=== PATIENT | male | born 1990 | race Caucasian/White ===

== ENCOUNTER 2023-01-13 20:23 | Observation (INO) | payer BC, SELFPAY ==
[2023-01-13] VITALS (9 sets, daily range): BP systolic 92–125; BP diastolic 58–78; PULSE 68–88; RESP 11–19; TEMP 36.8–36.9; O2SAT 96–99; BMI 27.9
--- NOTE | ~2023-01-13 | XR_ITS ---
EXAMINATION: XR soft tissue neck DATE: 01/13/2023 22:34 INDICATION: Retained food bolus. Cough. TECHNIQUE: 2 views of the neck soft tissues were obtained. COMPARISON: None. FINDINGS: The adenoids are enlarged. The palatine tonsils, epiglottis, prevertebral soft tissues, and glottis are normal. No radiopaque foreign body. IMPRESSION: 1. Enlarged adenoids. Reviewed, dictated and finalized at location A. IMPRESSION: 1. Enlarged adenoids.
--- NOTE | ~2023-01-13 | XR_ITS ---
EXAMINATION: XR chest 1V portable DATE: 01/14/2023 05:57 INDICATION: Cough. TECHNIQUE: A single frontal view of the chest was obtained. COMPARISON: None. FINDINGS: There is no pneumonia, pleural effusion, or pneumothorax. The heart size is normal. IMPRESSION: 1. No acute cardiopulmonary disease. Reviewed, dictated and finalized at location A.
[2023-01-13] MEDS: NITROGLYCERIN SL 0.4 MG TABLET SUBLINGUAL (20:57)
[2023-01-13] MEDS: GLUCAGON FOR INJ 1 MG VIAL IV PUSH (21:01)
--- NOTE | 2023-01-13 21:12 | ED.GENADULT ---
HPI - General Adult General Chief complaint: Unspecified Stated complaint: food stuck in throat Time Seen by Provider: 01/13/23 20:33 History of Present Illness HPI narrative: Patient is a 32-year-old gentleman who presents the emergency department with chief complaint of esophageal food impaction patient reports he was eating [employer] ate a piece of chicken and reports that it feels as though the chicken is stuck in his esophagus patient reports that his saliva builds up and then he has to spit the saliva out as that starts to get into his airway patient reports he tried [employer] and other things to try to get the impaction to move without success. Patient reports that he has had issues before with food becoming lodged but usually will clear on its own and has never had to come to the emergency department. Related Data Allergies Allergy/AdvReac Type Severity Reaction Status Date / Time No Known Allergies Allergy Verified 01/13/23 20:31 Review of Systems Review of Systems: A 10 system review of systems was completed on the patient and is negative except for what is stated in the HPI. Nursing and ancillary documentation was reviewed. Exam Narrative: GENERAL: Well-appearing, well-nourished, and in no acute distress. HEAD: Normocephalic, atraumatic. EYES: PERRLA and EOMI. ENT: Nares clear, no rhinorrhea or epistaxis. Mucous membranes moist. NECK: Supple. CHEST: Clear to auscultation. No respiratory distress. HEART: Regular rate and rhythm. No murmur heard. Normal peripheral pulses. ABDOMEN: Soft, nontender, nondistended, normal active bowel sounds. EXTREMITIES: Normal range of motion. No edema. SKIN: Warm, dry, no rash. NEURO: No focal deficits. Alert and oriented x3. PSYCH: Normal mood and affect. Course Vital Signs Vital signs: Vital Signs Temperature 36.8 C 01/13/23 20:27 Pulse Rate 87 01/13/23 20:27 Respiratory Rate 01/13/23 20:27 Blood Pressure 125/77 01/13/23 20:27 Pulse Oximetry 99 01/13/23 20:27 Oxygen Delivery Room Air 01/13/23 20:27 Temperature 36.8 C 01/13/23 20:27 Pulse Rate 88 01/13/23 20:55 Respiratory Rate 01/13/23 20:27 Blood Pressure 125/77 01/13/23 20:27 Pulse Oximetry 99 01/13/23 20:27 Oxygen Delivery Room Air 01/13/23 20:27 Medical Decision Making MDM Narrative Medical decision making narrative: Differential diagnosis esophageal food impaction Patient was given a dose of glucagon and given sublingual nitro in the emergency department the patient states he feels though the impaction may have moved a little bit but reports that he still having to spit out his saliva. Vital Signs Vital Signs: Vital Signs Temperature 36.8 C 01/13/23 20:27 Pulse Rate 87 01/13/23 20:27 Respiratory Rate 01/13/23 20:27 Blood Pressure 125/77 01/13/23 20:27 Pulse Oximetry 99 01/13/23 20:27 Oxygen Delivery Room Air 01/13/23 20:27 Temperature 36.8 C 01/13/23 20:27 Pulse Rate 88 01/13/23 20:55 Respiratory Rate 01/13/23 20:27 Blood Pressure 125/77 01/13/23 20:27 Pulse Oximetry 99 01/13/23 20:27 Oxygen Delivery Room Air 01/13/23 20:27 Discharge Plan Discharge Follow-up/Referrals: PHYSICIAN,HOST/HOSTESS RESTAURANT [Primary Care Provider] -
--- NOTE | 2023-01-13 21:42 | PC.NURSE ---
pt states that he still feels the piece of chicken in his throat. pt in no distress. denies any sob. able to speak in full sentences.
[2023-01-13 22:44] LABS: Basophils Absolute Auto 0.1 K/mm3 (0.0-0.1); Basophils Percent Auto 0.6 % (0.2-1.2); Eosinophils Absolute Auto 0.3 K/mm3 (0-0.3); Eosinophils Percent Auto 1.9 % (0-4.4); Hematocrit 46.1 % (42.0-52.0); Hemoglobin 15.5 g/dL (14.0-18.0); Immature Granulocyte Absolute 0.06 K/mm3 (0.00-0.031); Immature Granulocyte Percent A 0.4 % (0-0.5); Lymphocytes Absolute Auto 1.62 K/mm3 (0.9-3.2); Lymphocytes Percent Auto 10.5 % (18.3-44.2); Mean Corpuscular HGB Conc 33.6 g/dl (32-36); Mean Corpuscular Hemoglobin 30.2 pg (26-34); Mean Corpuscular Volume 89.9 fl (80-100); Mean Platelet Volume 10.1 fl (7.4-10.4); Monocytes Absolute Auto 0.9 K/mm3 (0.1-0.6); Monocytes Percent Auto 5.7 % (2.6-8.5); Neutrophils Absolute Auto 12.4 K/mm3 (1.3-6.7); Neutrophils Percent Auto 80.9 % (45.5-73.1); Platelet Count Result 242 k/mm3 (150-375); Red Blood Count 5.13 M/mm3 (4.6-6.20); Red Cell Distribution Width 12.3 % (11.5-14.5); White Blood Count 15.4 K/mm3 (4.5-10.0)
[2023-01-13 22:57] LABS: Alanine Aminotransferase 41 U/L (6-50); Albumin Level 4.1 g/dL (3.5-5.1); Alkaline Phosphatase 57 U/L (38-126); Anion Gap 4 mmol/L (8-16); Aspartate Amino Transferase 28 U/L (17-59); Bilirubin,Total 0.5 mg/dL (0.2-1.3); Blood Urea Nitrogen 13 mg/dL (9-20); Calcium 8.5 mg/dL (8.4-10.2); Carbon Dioxide 26 mmol/L (22-30); Chloride 108 mmol/L (98-107); Estimated CRCL calculation 92 ml/min; Estimated Glomerular Filt Rate > 60; Glucose 137 mg/dL (65-110); Potassium 3.8 mmol/L (3.4-5.0); Sodium 138 mmol/L (137-145)
--- NOTE | 2023-01-13 23:45 | ADMGEN ---
This patient, Damon Monsalve, was admitted to Medical Room 347-. Patient/family oriented to hospital policies and general routines including ID bracelet, bed and alarms, visiting hours, pain management, procedures, bathroom and other care routines, personal items, smoking policy, room service/diet, and visiting hours. Information on how to activate the Rapid Response Team has been discussed. Patient/Family are encouraged to report perceived risks to care and to ask questions if they do not understand what they are told or what they should do.
[2023-01-14] VITALS (8 sets, daily range): BP systolic 95–119; BP diastolic 54–72; PULSE 60–109; RESP 15–26; TEMP 36.7–36.9; O2SAT 96–100
[2023-01-14] MEDS: SODIUM CHLORIDE 0.9% IV 1,000 ML 125 ML IV CONT (00:06)
--- NOTE | 2023-01-14 01:53 | PM.IMHP ---
H&P: HPI History of Present Illness Date/Time: 01/13/23 23:15 Chief Complaint: Food stuck in my throat Narrative: 32-year-old male with a past medical history of asthma and vaping who presented to the ER with food stuck in his throat. Patient stated he was eating chicken from [employer] fried chicken and that the food got stuck. He reports that he has been having intermittent episodes of feeling as if food is gotten partially stuck in the past but he is usually able to get the food to pass when he drinks some soda. However today the food did not pass despite him trying to eat a banana and drinking some carbonated beverages. He reports that he cannot even manage his secretions. At the time of my evaluation the patient is repeatedly coughing and spitting up his secretions and has about 200 mL an emesis bag. He reports that he has been having intermittent sensation of heartburn for several months. He has never had a EGD. He denies any hematemesis or coffee-ground emesis. He denies any changes in his bowels. He does report that he has been coughing for the last week or so. He denies any rhinorrhea fever or chest pain. He denies any recent ill contacts. In the ER they gave the patient dose of glucagon and nitroglycerin without relief in his symptoms. A neck x-ray confirmed was no radiopaque bodies causing the patient's obstruction such as chicken bones. He does have a history of asthma. He uses his rescue inhaler at least once a day on average. He has not been to see a primary care physician for several years. Review of Systems Review of Systems: 12 systems were reviewed with pertinent positives and negatives per HPI. Except as documented in the HPI, all other systems were reviewed and are negative. [facility] Past Medical History Medical History (Updated 01/14/23 @ 02:07 by Gabriela Mcelroy DO) Asthma Nicotine dependence Vaping Surgical History Surgical History (Updated 01/14/23 @ 01:58 by Gabriela Mcelroy DO) No significant past surgical history Family History Family History Father Healthy adult Mother Healthy adult Social History Social History (Updated 01/14/23 @ 02:01 by Gabriela Mcelroy DO) Social History: The patient is single. He has 2 children. 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 He has intermittently vape since he was a teenager. He quit vaping in May 2022. He rarely drinks alcohol. He rarely uses marijuana. Code status: Full code Surrogate decision maker: Mehrdad Monsalve (father) Smoking status: Former smoker Tobacco type: e-cigarettes/vaping Alcohol intake: current Drinks per week: 3 Substance use: never Substance use type: does not use Lack of Transportation: No Lack of Food: Never True Current Housing: I Have Housing Concerned About Future Housing: No Difficulty Paying Gas/Electric Bills: No Difficulty Paying for Meds: No Currently Unemployed: No Education: Decline to Answer Difficulty w/ Childcare or Family Care: No Spiritual care concerns: No Meds Home Medications and Allergies Home Medications Medication Instructions Recorded Confirmed Type acetaminophen 325 mg tablet 650 mg PO PRN PRN Pain (Scale 01/14/23 01/14/23 History (Tylenol) Score 1-3) albuterol sulfate 90 mcg/actuation 2 puff inhalation QID PRN 01/14/23 01/14/23 History aerosol inhaler Shortness Of Breath Allergies Allergy/AdvReac Type Severity Reaction Status Date / Time No Known Allergies Allergy Verified 01/13/23 20:31 Vital Signs Vital Signs - 24 hr 01/13/23 20:27 01/13/23 20:55 01/13/23 21:01 Temperature 98.2 F Pulse Rate 87 88 85 Respiratory Rate 19 18 Blood Pressure 125/77 92/75 L Pulse Oximetry 99 Oxygen Delivery Room Air 01/13/23 21:31 01/13/23 22:01 01/13/23 22:16 Temperature Pulse Rate 68 78 81 Respiratory Rate 18 16 15 Blood Pressure 105/70 114/77 107/75 P
--- NOTE | 2023-01-14 06:45 | WPDANESEPP ---
Anes - Eval Pre Procedure Procedure: EGD-removal food bolus Date/Time: 01/14/23 06:45 Pre Op Diagnosis: Esophageal Food Impaction Patient Data Age: 32 Gender: M Height: 1.73 m Weight: 83.3 kg Last Vital Signs Temp 36.7 C 01/14/23 04:35 Pulse 109 H 01/14/23 04:35 Resp 20 01/14/23 04:35 BP 110/72 01/14/23 04:35 Pulse Ox 98 01/14/23 04:35 O2 Del Method Room Air 01/13/23 23:45 Allergies Allergy/AdvReac Type Severity Reaction Status Date / Time No Known Allergies Allergy Verified 01/13/23 20:31 Home Medications Medication Instructions Recorded Confirmed Type acetaminophen 325 mg tablet 650 mg PO PRN PRN Pain (Scale 01/14/23 01/14/23 History (Tylenol) Score 1-3) albuterol sulfate 90 mcg/actuation 2 puff inhalation QID PRN 01/14/23 01/14/23 History aerosol inhaler Shortness Of Breath Laboratory Tests 01/13/23 22:24 WBC 15.4 H K/mm3 (4.5-10.0) RBC 5.13 M/mm3 (4.6-6.20) Hgb 15.5 g/dL (14.0-18.0) Hct 46.1 % (42.0-52.0) MCV 89.9 fl (80-100) MCH 30.2 pg (26-34) MCHC 33.6 g/dl (32-36) RDW 12.3 % (11.5-14.5) Plt Count 242 k/mm3 (150-375) MPV 10.1 fl (7.4-10.4) Immature Gran % (Auto) 0.4 % (0-0.5) Neut % (Auto) 80.9 H % (45.5-73.1) Lymph % (Auto) 10.5 L % (18.3-44.2) [place] % (Auto) 5.7 % (2.6-8.5) Eos % (Auto) 1.9 % (0-4.4) Baso % (Auto) 0.6 % (0.2-1.2) Lymph # (Auto) 1.62 K/mm3 (0.9-3.2) [place] # (Auto) 0.9 H K/mm3 (0.1-0.6) Eos # (Auto) 0.3 K/mm3 (0-0.3) Baso # (Auto) 0.1 K/mm3 (0.0-0.1) Abs Immat Gran (auto) 0.06 H K/mm3 (0.00-0.031) Absolute Neuts (auto) 12.4 H K/mm3 (1.3-6.7) Absolute Nucleated RBC 0.0 K/mm3 (0.0-0.012) Nucleated RBC % 0.0 % (0.0-0.2) Sodium 138 mmol/L (137-145) Potassium 3.8 mmol/L (3.4-5.0) Chloride 108 H mmol/L (98-107) Carbon Dioxide 26 mmol/L (22-30) Anion Gap 4 L mmol/L (8-16) BUN 13 mg/dL (9-20) Creatinine 1.00 mg/dL (0.7-1.3) Estim Creat Clear Calc 92 ml/min Estimated GFR > 60 (59 - ) Glucose 137 H mg/dL (65-110) Calcium 8.5 mg/dL (8.4-10.2) Total Bilirubin 0.5 mg/dL (0.2-1.3) AST 28 U/L (17-59) ALT 41 U/L (6-50) Alkaline Phosphatase 57 U/L (38-126) Total Protein 7.0 g/dL (6.3-8.2) Albumin 4.1 g/dL (3.5-5.1) Patient hx anesthesia problems: none Family hx anesthesia problems: none Results Review: All pre-operative results and documents have been reviewed as part of the pre-operative evaluation. [facility] Past Medical History Medical History Asthma Nicotine dependence Vaping Surgical History Surgical History No significant past surgical history Family History Family History Father Healthy adult Mother Healthy adult Social History Social History Social History: The patient is single. He has 2 children. 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 He has intermittently vape since he was a teenager. He quit vaping in May 2022. He rarely drinks alcohol. He rarely uses marijuana. Code status: Full code Surrogate decision maker: Mehrdad Monsalve (father) Smoking status: Former smoker Tobacco type: e-cigarettes/vaping Alcohol intake: current Drinks per week: 3 Substance use: never Substance use type: does not use Lack of Transportation: No Lack of Food: Never True Current Housing: I Have Housing Concerned About Future Housing: No Difficulty Paying Gas/Electric Bills: No Difficulty Paying for Meds: No Currently Unemployed: No Education: Decline to Answer Difficulty w/ Childcare or Family Care: No Spiritual care concerns: No Exa
--- NOTE | 2023-01-14 07:13 | PC.NURSE ---
PATIENT TO GI LAB VIA WHEELCHAIR.
--- NOTE | 2023-01-14 07:20 | WPDANESEPPF ---
Anes - Initial Pre Proc Eval Procedure: Operation Date: 01/14/23 07:30 Proposed Procedures p Esophagogastroduodenoscopy - Mehrdad Tyler MD Date/Time: 01/14/23 07:20 Surgeon: Gabriela Mcelroy DO Pre Op Diagnosis: Esophageal Food Impaction Patient Data Age: 32 Gender: M Height: 1.73 m Weight: 83.3 kg Last Vital Signs Temp 36.7 C 01/14/23 04:35 Pulse 109 H 01/14/23 04:35 Resp 20 01/14/23 04:35 BP 110/72 01/14/23 04:35 Pulse Ox 98 01/14/23 04:35 O2 Del Method Room Air 01/13/23 23:45 Allergies Allergy/AdvReac Type Severity Reaction Status Date / Time No Known Allergies Allergy Verified 01/14/23 07:20 Home Medications Medication Instructions Recorded Confirmed Type acetaminophen 325 mg tablet 650 mg PO PRN PRN Pain (Scale 01/14/23 01/14/23 History (Tylenol) Score 1-3) albuterol sulfate 90 mcg/actuation 2 puff inhalation QID PRN 01/14/23 01/14/23 History aerosol inhaler Shortness Of Breath Laboratory Tests 01/13/23 22:24 WBC 15.4 H K/mm3 (4.5-10.0) RBC 5.13 M/mm3 (4.6-6.20) Hgb 15.5 g/dL (14.0-18.0) Hct 46.1 % (42.0-52.0) MCV 89.9 fl (80-100) MCH 30.2 pg (26-34) MCHC 33.6 g/dl (32-36) RDW 12.3 % (11.5-14.5) Plt Count 242 k/mm3 (150-375) MPV 10.1 fl (7.4-10.4) Immature Gran % (Auto) 0.4 % (0-0.5) Neut % (Auto) 80.9 H % (45.5-73.1) Lymph % (Auto) 10.5 L % (18.3-44.2) [place] % (Auto) 5.7 % (2.6-8.5) Eos % (Auto) 1.9 % (0-4.4) Baso % (Auto) 0.6 % (0.2-1.2) Lymph # (Auto) 1.62 K/mm3 (0.9-3.2) [place] # (Auto) 0.9 H K/mm3 (0.1-0.6) Eos # (Auto) 0.3 K/mm3 (0-0.3) Baso # (Auto) 0.1 K/mm3 (0.0-0.1) Abs Immat Gran (auto) 0.06 H K/mm3 (0.00-0.031) Absolute Neuts (auto) 12.4 H K/mm3 (1.3-6.7) Absolute Nucleated RBC 0.0 K/mm3 (0.0-0.012) Nucleated RBC % 0.0 % (0.0-0.2) Sodium 138 mmol/L (137-145) Potassium 3.8 mmol/L (3.4-5.0) Chloride 108 H mmol/L (98-107) Carbon Dioxide 26 mmol/L (22-30) Anion Gap 4 L mmol/L (8-16) BUN 13 mg/dL (9-20) Creatinine 1.00 mg/dL (0.7-1.3) Estim Creat Clear Calc 92 ml/min Estimated GFR > 60 (59 - ) Glucose 137 H mg/dL (65-110) Calcium 8.5 mg/dL (8.4-10.2) Total Bilirubin 0.5 mg/dL (0.2-1.3) AST 28 U/L (17-59) ALT 41 U/L (6-50) Alkaline Phosphatase 57 U/L (38-126) Total Protein 7.0 g/dL (6.3-8.2) Albumin 4.1 g/dL (3.5-5.1) Patient hx anesthesia problems: none Family hx anesthesia problems: none Results Review: All pre-operative results and documents have been reviewed as part of the pre-operative evaluation. [facility] Past Medical History Medical History Asthma Nicotine dependence Vaping Surgical History Surgical History No significant past surgical history Family History Family History Father Healthy adult Mother Healthy adult Social History Social History Social History: The patient is single. He has 2 children. 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 He has intermittently vape since he was a teenager. He quit vaping in May 2022. He rarely drinks alcohol. He rarely uses marijuana. Code status: Full code Surrogate decision maker: Mehrdad Arvizuhead (father) Smoking status: Former smoker Tobacco type: e-cigarettes/vaping Alcohol intake: current Drinks per week: 3 Substance use: never Substance use type: does not use Lack of Transportation: No Lack of Food: Never True Current Housing: I Have Housing Concerned About Future Housing: No Difficulty Paying Gas/Electric Bills: No Difficulty Paying for Meds: No Currently Unemployed
[2023-01-14] MEDS: LACTATED RINGERS 1,000 ML 150 ML IV CONT (07:23)
[2023-01-14] MEDS: ALBUTEROL SULFATE NEB 2.5 MG/3 ML INH INHALATION (07:30)
[2023-01-14] MEDS: BENZOCAINE (*SP) 60 ML SPRAY CAN (HURRICAINE) 1 SPRAY MUCOUS MEM (07:40)
--- NOTE | 2023-01-14 08:31 | SUR.OPER ---
Suction from speedband kit attempted by Dr. Tyler but was unsuccessful.
--- NOTE | 2023-01-14 08:36 | WPDGICN ---
Assessment and Plan Assessment and plan (1) Food impaction of esophagus: Qualifiers: Encounter type: initial encounter Qualified Code(s): T18.128A - Food in esophagus causing other injury, initial encounter Code(s): T18.128A - Food in esophagus causing other injury, initial encounter Status: Acute Assessment and Plan: Patient with food impaction after eating chicken last night. Admitted for observation and IV fluid rehydration. EGD will be performed. Further recommendations after endoscopy. GI Consult Note Consult date/time: 01/14/23 08:36 Reason for consult: Food impaction HPI: Damon Monsalve is a 32 year old male presents to the ER yesterday with food impaction. Patient was eating chicken. He was unable to swallow food after food became chief stuck and midportion of the chest. Patient has had difficulty swallowing in the past. Patient denies any significant heartburn. After present emergency room was admitted for observation and IV fluids. Family history noncontributory. Review of Systems Review of Systems: Review of systems noncontributory. [facility] Past Medical History Medical History Asthma Nicotine dependence Vaping Surgical History Surgical History No significant past surgical history Family History Family History Father Healthy adult Mother Healthy adult Social History Social History Social History: The patient is single. He has 2 children. 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 He has intermittently vape since he was a teenager. He quit vaping in May 2022. He rarely drinks alcohol. He rarely uses marijuana. Code status: Full code Surrogate decision maker: Mehrdad Monsalve (father) Smoking status: Former smoker Tobacco type: e-cigarettes/vaping Alcohol intake: current Drinks per week: 3 Substance use: never Substance use type: does not use Lack of Transportation: No Lack of Food: Never True Current Housing: I Have Housing Concerned About Future Housing: No Difficulty Paying Gas/Electric Bills: No Difficulty Paying for Meds: No Currently Unemployed: No Education: Decline to Answer Difficulty w/ Childcare or Family Care: No Spiritual care concerns: No Meds Home Medications and Allergies Home Medications Medication Instructions Recorded Confirmed Type acetaminophen 325 mg tablet 650 mg PO PRN PRN Pain (Scale 01/14/23 01/14/23 History (Tylenol) Score 1-3) albuterol sulfate 90 mcg/actuation 2 puff inhalation QID PRN 01/14/23 01/14/23 History aerosol inhaler Shortness Of Breath Allergies Allergy/AdvReac Type Severity Reaction Status Date / Time No Known Allergies Allergy Verified 01/14/23 07:20 Vital Signs Vital Signs - 24 hr 01/13/23 20:27 01/13/23 20:55 01/13/23 21:01 Temperature 98.2 F Pulse Rate 87 88 85 Respiratory Rate 19 18 Blood Pressure 125/77 92/75 L Pulse Oximetry 99 Oxygen Delivery Room Air 01/13/23 21:31 01/13/23 22:01 01/13/23 22:16 Temperature Pulse Rate 68 78 81 Respiratory Rate 18 16 15 Blood Pressure 105/70 114/77 107/75 Pulse Oximetry Oxygen Delivery 01/13/23 23:00 01/13/23 23:01 01/13/23 23:54 Temperature 98.4 F Pulse Rate 76 77 79 Respiratory Rate 11 L 15 18 Blood Pressure 106/58 L 117/78 111/65 Pulse Oximetry 98 96 98 Oxygen Delivery 01/13/23 23:45 01/14/23 04:35 01/14/23 07:23 Temperature 98.1 F 98.4 F Pulse Rate 109 H 85 Respiratory Rate 20 18 Blood Pressure 110/72 119/63 Pulse Oximetry 98 96 Oxygen Delivery Room Air Room Air 01/14/23 07:43 Temperature Pulse Rate 60 Respiratory Rate 16 Blood Pressure Pulse Oximetry Oxygen Delivery Exam Narrative:
[2023-01-14] MEDS: PANTOPRAZOLE 40 MG TABLET PO (09:36)
[2023-01-14 09:46] LABS: Basophils Absolute Auto 0.1 K/mm3 (0.0-0.1); Basophils Percent Auto 0.7 % (0.2-1.2); Eosinophils Absolute Auto 0.2 K/mm3 (0-0.3); Eosinophils Percent Auto 2.1 % (0-4.4); Hematocrit 45.1 % (42.0-52.0); Hemoglobin 14.8 g/dL (14.0-18.0); Immature Granulocyte Absolute 0.01 K/mm3 (0.00-0.031); Immature Granulocyte Percent A 0.1 % (0-0.5); Lymphocytes Absolute Auto 1.45 K/mm3 (0.9-3.2); Lymphocytes Percent Auto 19.2 % (18.3-44.2); Mean Corpuscular HGB Conc 32.8 g/dl (32-36); Mean Corpuscular Hemoglobin 29.8 pg (26-34); Mean Corpuscular Volume 90.9 fl (80-100); Mean Platelet Volume 10.1 fl (7.4-10.4); Monocytes Absolute Auto 0.6 K/mm3 (0.1-0.6); Monocytes Percent Auto 7.3 % (2.6-8.5); Neutrophils Absolute Auto 5.4 K/mm3 (1.3-6.7); Neutrophils Percent Auto 70.6 % (45.5-73.1); Platelet Count Result 215 k/mm3 (150-375); Red Blood Count 4.96 M/mm3 (4.6-6.20); Red Cell Distribution Width 12.6 % (11.5-14.5); White Blood Count 7.6 K/mm3 (4.5-10.0)
[2023-01-14 10:00] LABS: Alanine Aminotransferase 37 U/L (6-50); Albumin Level 4.1 g/dL (3.5-5.1); Alkaline Phosphatase 62 U/L (38-126); Anion Gap 4 mmol/L (8-16); Aspartate Amino Transferase 27 U/L (17-59); Bilirubin,Total 0.7 mg/dL (0.2-1.3); Blood Urea Nitrogen 14 mg/dL (9-20); Calcium 8.5 mg/dL (8.4-10.2); Carbon Dioxide 28 mmol/L (22-30); Chloride 109 mmol/L (98-107); Estimated CRCL calculation 98 ml/min; Estimated Glomerular Filt Rate > 60; Glucose 97 mg/dL (65-110); Potassium 4.2 mmol/L (3.4-5.0); Sodium 141 mmol/L (137-145)
--- NOTE | 2023-01-14 13:17 | PM.DS ---
DS: Admitting Diagnosis Discharge Date 01/14/23 Admitting Diagnosis esophageal stricture DS: Discharge Diagnosis Discharge Diagnosis (1) Food impaction of esophagus: Qualifiers: Encounter type: initial encounter Qualified Code(s): T18.128A - Food in esophagus causing other injury, initial encounter Code(s): T18.128A - Food in esophagus causing other injury, initial encounter Status: Acute (2) Asthma: Qualifiers: Asthma severity: moderate Asthma persistence: persistent Asthma complication type: uncomplicated Qualified Code(s): J45.40 - Moderate persistent asthma, uncomplicated Code(s): J45.909 - Unspecified asthma, uncomplicated Status: Acute Plan Patient has been admitted as observation status. DS: Summary Hospital Course Hospital Course: This is a 32-year-old male past medical history of asthma who presents to the ED due to food getting stuck in his throat. He has a history of some difficulty with swallowing but has never had to be seen by the doctor for it. He was having intermittent sensations of heartburn has been going on for months. He not have any emesis. He did have some regurgitation. X-ray of the neck confirmed no radiopaque bodies causing patient's obstruction. GI was consulted. 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 Is recommended that patient be started on Protonix 40 mg once daily and a follow-up EGD in 1-2 months. Patient was able to tolerate diet after EGD was performed. Due to doing well he was able to be sent home on 40 mg of Protonix daily. Labs and vital signs are stable use med for discharge. Time Spent with Patient Time attestation: Total time spent providing and/or coordinating discharge services: Exam Narrative: GENERAL: Comfortable, no acute distress HENMT: moist mucous membranes EYES: EOM intact b/l RESPIRATORY: clear to auscultation CARDIO: RRR GI: soft, nontender, bowel sounds present SKIN: no rashes EXTREMITIES: no edema, redness or tenderness DS: Data Data Completed and Pending Labs on day of discharge: Labs from last 24 hours 01/14/23 01/13/23 09:31 22:24 WBC 7.6 15.4 H RBC 4.96 5.13 Hgb 14.8 15.5 Hct 45.1 46.1 MCV 90.9 89.9 MCH 29.8 30.2 MCHC 32.8 33.6 RDW 12.6 12.3 Plt Count 215 242 MPV 10.1 10.1 Immature Gran % (Auto) 0.1 0.4 Neut % (Auto) 70.6 80.9 H Lymph % (Auto) 19.2 10.5 L [place] % (Auto) 7.3 5.7 Eos % (Auto) 2.1 1.9 Baso % (Auto) 0.7 0.6 Lymph # (Auto) 1.45 1.62 [place] # (Auto) 0.6 0.9 H Eos # (Auto) 0.2 0.3 Baso # (Auto) 0.1 0.1 Abs Immat Gran (auto) 0.01 0.06 H Absolute Neuts (auto) 5.4 12.4 H Absolute Nucleated RBC 0.0 0.0 Nucleated RBC % 0.0 0.0 Sodium 141 138 Potassium 4.2 3.8 Chloride 109 H 108 H Carbon Dioxide 28 26 Anion Gap 4 L 4 L BUN 14 13 Creatinine 0.90 1.00 Estim Creat Clear Calc 98 92 Estimated GFR > 60 > 60 Glucose 97 137 H Calcium 8.5 8.5 Total Bilirubin 0.7 0.5 AST 27 28 ALT 37 41 Alkaline Phosphatase 62 57 Total Protein 7.0 7.0 Albumin 4.1 4.1 Discharge Plan Discharge Attending physician on discharge: Zoltan Orourke Consulting providers: Kee Randhawa; Mehrdad Tyler Discharging Clinician: Jessica Vieyra Patient Disposition: Home, Self-Care Activity: other - see discharge instructions Diet: regular Discharge Instructions: Medications: Pantoprazole 40 mg daily Follow-up EGD in 1-2 months. Take your medicine as directed. Contact your healthcare provider if you think your medicine is not helping or if you have side effects. Tell your provider if you are allergic to any medicine. Follow up with your healthcare provider as directed: You may need to return for more tests. Write down your questions so you remember to ask them during your visits. Nutrition: You may not be able to ea
== END 2023-01-14 14:15 | disposition home or self-care (01) ==
LOC: ANHED 21:19 → ANH3MED 01-14 13:20
PROVIDERS: Internal Medicine Critical Care Medicine; Internal Medicine Gastroenterology; Admitting Provider Internal Medicine; Emergency Provider Emergency Medicine; Visit Provider Hospitalist
PROC: 0DJ08ZZ Inspection of Upper Intestinal Tract, Via Natural or Artificial Opening Endoscopic (ICD-10-PCS; CPT 43235; principal; 2023-01-14 07:30)
DX: T17.228A Food in pharynx causing other injury, initial encounter (principal); Q39.4 Esophageal web; J45.909 Unspecified asthma, uncomplicated; J35.2 Hypertrophy of adenoids; R06.02 Shortness of breath; E66.3 Overweight; Z68.27 Body mass index [BMI] 27.0-27.9, adult; F10.90 Alcohol use, unspecified, uncomplicated; F12.90 Cannabis use, unspecified, uncomplicated; Z87.891 Personal history of nicotine dependence; Z79.1 Long term (current) use of non-steroidal anti-inflammatories (NSAID); Z79.51 Long term (current) use of inhaled steroids
CPT/HCPCS: 43247; 43249; 36415; 70360; 71045; 80053; 85025; 94640; 96361; 96374; 99285; A9270; C1726; G0378; J1610; J2704; J7030; J7120

== ENCOUNTER 2023-03-13 01:22 | Day surgery (SDC) | payer BC, SELFPAY ==
[2023-02-12 09:59] VITALS: BMI 24.7
[2023-03-12 11:53] VITALS: BMI 24.7
--- NOTE | 2023-03-12 11:57 | PC.NURSE ---
Pt called to let us know he never started the pantoprazole that Dr. Tyler ordered in December after Food Bolus due to ins. and other issues. Pharmacy no longer has prescription since it has been too long and he wants to make sure Dr. Tyler still wants to do proc. Marsha Escalona RN spoke with Dr. Tyler and he wants pt to come in tomorrow as scheduled. I did let patient know this and he will be here for procedure.
[2023-03-13] VITALS (8 sets, daily range): BP systolic 104–135; BP diastolic 68–85; PULSE 74–93; RESP 13–18; TEMP 36.2–36.4; O2SAT 99–100; BMI 26.9
[2023-03-13] MEDS: LACTATED RINGERS 1,000 ML 150 ML IV CONT (12:55)
--- NOTE | 2023-03-13 13:30 | PM.HPGS ---
History of Present Illness History of Present Illness Consent: Risks, benefits, and alternatives have been discussed and questions answered. Patient agrees to proceed with procedure. Chief complaint: esophageal stricture Narrative: Damon Monsalve is a 32 year old male Presents for follow-up EGD. Patient initially presented 2 months ago to the GI lab with esophageal stricture. He had a food impaction at that time. Endoscopy revealed multiple mid and distal esophageal strictures. This was eventually dilated with related with 6-8, then 8-10 mm through the scope balloon. Patient was sent home with prescription for pantoprazole however he did not take this because he lost his insurance. States he has been eating fairly well since then but presents today for follow-up endoscopy. Patient denies any ongoing heartburn. Family history is noncontributory. Review of Systems Review of Systems: Review of systems noncontributory. [facility] Past Medical History Medical History Asthma Nicotine dependence Vaping Surgical History Surgical History No significant past surgical history Family History Family History Father Healthy adult Mother Healthy adult Social History Social History Social History: The patient is single. He has 2 children. 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 He has intermittently vape since he was a teenager. He quit vaping in May 2022. He rarely drinks alcohol. He rarely uses marijuana. Code status: Full code Surrogate decision maker: Mehrdad Monsalve (father) Smoking packs per day: 1 Smoking cigarettes per day: 20.0 Years smoked: 9 Smoking pack-years: 9.00 Smoking status: Former smoker Tobacco type: cigarettes and e-cigarettes/vaping Additional smoking assessment comments: VAPING- QUIT 08/2022 Alcohol intake: current Drinks per week: 3 Substance use: never Substance use type: does not use Lack of Transportation: No Lack of Food: Never True Current Housing: I Have Housing Concerned About Future Housing: No Difficulty Paying Gas/Electric Bills: No Difficulty Paying for Meds: No Currently Unemployed: No Education: Decline to Answer Difficulty w/ Childcare or Family Care: No Living arrangements: alone Spiritual care concerns: No Meds Home Medications and Allergies Home Medications Medication Instructions Recorded Confirmed Type albuterol sulfate 90 mcg/actuation 2 puff inhalation QID PRN 01/14/23 03/13/23 History aerosol inhaler Shortness Of Breath pantoprazole 40 mg tablet,delayed 40 mg PO QAM #30 tabs 01/15/23 03/13/23 Rx release Allergies Allergy/AdvReac Type Severity Reaction Status Date / Time No Known Allergies Allergy Verified 03/13/23 12:39 Vital Signs Vital Signs - 24 hr 03/13/23 12:35 Temperature 97.1 F L Pulse Rate 74 Respiratory Rate 18 Blood Pressure 104/68 Pulse Oximetry 99 Oxygen Delivery Room Air Exam Narrative: Physical exam reveals patient to be alert. Vital signs stable. HEENT exam is unremarkable. Patient anicteric. Lungs are clear. Heart without murmur. Abdomen bowel sounds present soft nontender with no organomegaly. Assessment and Plan Assessment and plan (1) Esophageal stricture: Code(s): K22.2 - Esophageal obstruction Status: Acute Assessment and Plan: Patient with mid and distal esophageal stricturing suspicious for eosinophilic esophagitis. Patient presented with a very tight stricture and also food impaction 2 months ago. He now presents for follow-up EGD will for biopsy and dilatation however has not been able to take his proton pump inhibitor because of lack of insurance. Patient reassured that this is av
--- NOTE | 2023-03-13 13:31 | WPDANESEPPF ---
Anes - Initial Pre Proc Eval Procedure: Operation Date: 03/13/23 13:30 Proposed Procedures p Esophagogastroduodenoscopy - Mehrdad Tyler MD Date/Time: 03/13/23 13:31 Surgeon: Mehrdad Tyler MD Pre Op Diagnosis: esophageal stricture Patient Data Age: 32 Gender: M Height: 1.75 m Weight: 82.6 kg Last Vital Signs Temp 97.1 F L 03/13/23 12:35 Pulse 74 03/13/23 12:35 Resp 18 03/13/23 12:35 BP 104/68 03/13/23 12:35 Pulse Ox 99 03/13/23 12:35 O2 Del Method Room Air 03/13/23 12:35 Allergies Allergy/AdvReac Type Severity Reaction Status Date / Time No Known Allergies Allergy Verified 03/13/23 12:39 Home Medications Medication Instructions Recorded Confirmed Type albuterol sulfate 90 mcg/actuation 2 puff inhalation QID PRN 01/14/23 03/13/23 History aerosol inhaler Shortness Of Breath pantoprazole 40 mg tablet,delayed 40 mg PO QAM #30 tabs 01/15/23 03/13/23 Rx release Patient hx anesthesia problems: none Family hx anesthesia problems: none Results Review: All pre-operative results and documents have been reviewed as part of the pre-operative evaluation. [facility] Past Medical History Medical History Asthma Nicotine dependence Vaping Surgical History Surgical History No significant past surgical history Family History Family History Father Healthy adult Mother Healthy adult Social History Social History Social History: The patient is single. He has 2 children. 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 He has intermittently vape since he was a teenager. He quit vaping in May 2022. He rarely drinks alcohol. He rarely uses marijuana. Code status: Full code Surrogate decision maker: Mehrdad Monsalve (father) Smoking packs per day: 1 Smoking cigarettes per day: 20.0 Years smoked: 9 Smoking pack-years: 9.00 Smoking status: Former smoker Tobacco type: cigarettes and e-cigarettes/vaping Additional smoking assessment comments: VAPING- QUIT 08/2022 Alcohol intake: current Drinks per week: 3 Substance use: never Substance use type: does not use Lack of Transportation: No Lack of Food: Never True Current Housing: I Have Housing Concerned About Future Housing: No Difficulty Paying Gas/Electric Bills: No Difficulty Paying for Meds: No Currently Unemployed: No Education: Decline to Answer Difficulty w/ Childcare or Family Care: No Living arrangements: alone Spiritual care concerns: No Anes - Eval Final PreProcedure Day of Procedure 03/13/23 13:31 Patient weight: normal Heart: regular rate and rhythm Lungs: clear to auscultation Airway: Mallampati scale class II Neurological: alert and oriented Last oral intake: >/= 8 hours ASA classification: II Emergent: no Anesthetic plan: proceed Anesthesia type and monitoring: general GIVS and standard monitoring Results Review: All pre-operative results and documents have been reviewed as part of the pre-operative evaluation. Informed Consent: The patient's anesthetic plan and its attendant risks and benefits were discussed with the patient/family/POA. Questions were solicited and answers provided to the satisfaction of the patient/family/POA.
== END 2023-03-13 15:56 | disposition home or self-care (01) ==
PROVIDERS: Visit Provider Internal Medicine Gastroenterology
PROC: 0DJ08ZZ Inspection of Upper Intestinal Tract, Via Natural or Artificial Opening Endoscopic (ICD-10-PCS; CPT 43235; principal; 2023-03-13 13:30)
DX: K22.2 Esophageal obstruction (principal); J45.909 Unspecified asthma, uncomplicated; Z79.51 Long term (current) use of inhaled steroids; Z87.891 Personal history of nicotine dependence
CPT/HCPCS: 43450; 43235; 88305; J2704; J7120